=== PATIENT | female | born 1950 | race Caucasian/White ===

== ENCOUNTER → 2023-11-15 13:10 | Outpatient (REF) | payer MEDICARE, OTHER, SELFPAY | LOC: HWWDC 13:10 | PROVIDERS: ATTENDING PHYSICIAN Internal Medicine | DX: Z12.31 Encounter for screening mammogram for malignant neoplasm of breast (principal) | CPT/HCPCS: 77063; 77067 ==

== ENCOUNTER 2024-10-05 06:25 | Emergency (ER) | payer MEDICARE, OTHER, SELFPAY ==
[2024-10-05 09:46] VITALS: BMI 31.1
[2024-10-05] MEDS: DUONEB 3 ML INH (09:56)
--- NOTE | 2024-10-05 10:05 | ED.GENMED ---
History of Present Illness
General
Chief Complaint: Allergic Reaction
Source: patient
Exam Limitations: none
Time Seen by Provider: 10/05/24 09:15
Nursing documentation reviewed up to this point in time: agreed with
History of Present Illness
History of Present Illness:
74 y/o F with GERD, heart murmur
here with itchy rash
pt says about 8 days ago she started with cough. she went to 5 days ago and tested positive for RSV; she mostly had cough, no fever
was sent home with medrol dose peter which she stated 4 days ago
she also started mucinex DM that day
she broke out in a rash the followin gday
cheeks were a little red and dry
than has had varying rash on her arms and legs an dback that seems to wax and wane; is dry and itchy
no fever
thinks that her cough is better
doesn't use an inhaler and is not COPD/smoker or ashtma
but she does feel like she is wheezing
no other new meds or foods
Past History
Past History
ED Past Medical History: GERD
ED Past Surgical History: None
Social History
Tobacco: Non-smoker
Review of Systems
Review of Systems
Allergies reviewed?: Yes
All Other Systems: Not applicable
Phy Exam
Physical Exam
Physical Exam:
GENERAL: Alert , in no apparent distres
ENT: o/p clr, mmm.
CARDIAC: Regular rate and rhythm .
LUNGS: Inspiratory and expiratory wheezes mildly, occasional cough, moving good air, no respiratory distress
ABDOMEN: Soft, without focal tenderness, no r/g, no cvat, normal bowel sounds
NEUROLOGICAL: Alert and oriented, no focal neuro deficits
SKIN: Warm and dry, skin intact.
Urticarial-like rash on the AC regions of both arms, scattered over her back, few on her legs bilaterally, some dry patches on her cheeks but no urticaria, no lip swelling
MUSCULOSKELETAL: No edema, well perfused. neg darrick's sign
PSYCH: Normal and appropriate interaction.
Course
Orders/Labs/Results
Orders:
Orders
10/05/24 09:45
Ipratropium/Albuterol Sulfate [Duoneb] 3 ml .ROUTE .STK-MED ONE
10/05/24 09:55
Ipratropium/Albuterol Sulfate [Duoneb] 3 ml INH R NOW ONE
10/05/24 10:41
Diphenhydramine [Benadryl] 50 mg PO NOW STA
Vital Signs
Initial and Last Documented VS:
Initial Vital Signs
Temp Pulse Resp Pulse Ox
36.5 C 95 18 98
10/05/24 06:33 10/05/24 06:33 10/05/24 06:33 10/05/24 06:33
Last Documented Vital Signs
Temp Pulse Resp BP Pulse Ox
36.5 C 91 18 150/90 98
10/05/24 06:33 10/05/24 10:18 10/05/24 06:33 10/05/24 10:18 10/05/24 06:33
MDM/Problems Addressed
Differential Diagnosis Includes:
Allergic reaction, viral urticaria
MDM/Problems Addressed:
74-year-old female with recently diagnosed RSV with an improving cough he has been on a Medrol Dosepak and Mucinex DM for the last 3 days with urticaria on her arms and back that is itchy. Patient says she has never taken steroids before that she
knows of but she has taken Robitussin DM and she believes Mucinex before without any issues. This is her only new medication. She got tested for flu and COVID at urgent care which were negative but she was positive for RSV. Patient declined an
inhaler because she does not like the way they make her feel because she coughs after using it. But she does have wheezing. On exam she has inspiratory and expiratory wheezing however she is moving good air and is not hypoxic. She believes this
cough is much better than what she had last week. She does have an urticarial-like rash on her arms and trunk. I do feel like this is probably a viral urticaria and less likely an allergy to steroids however she is feeling strong about not
continuing the Medrol Dosepak for which she has 3 pills left which is unlikely to cause her any harm. For her wheezing I am giving her a neb treatment and we will send her home with a neb machine
She can take Benadryl every 6 hours as needed for the urticaria
This does not appear to be acute anaphylactic reaction because she has been having the wheezing before the rash began
*Critical Care Note
Total Time (30-74mins, 75-104mins- exclusive of procedures): Not Applicable
ED Attending Note
-
Portions of this chart may have been created with voice recognition software.� Occasional wrong word or��sound alike� substitutions may have occurred due to the inherent limitations of voice recognition software.
Discharge Plan
Departure
Patient Disposition: Home (Routine Discharge)
Date of Disposition: 10/05/24
Time of Disposition: 10:40
Patient with high blood pressure during this ER visit?: Yes
Condition: Fair
Covid-19: Not Applicable
Discharge Problem:
Urticaria, Acute bronchiolitis due to respiratory syncytial virus (RSV)
Instructions: Hives (DC)
Prescriptions:
New
albuterol sulfate 2.5 mg /3 mL (0.083 %) solution for nebulization
2.5 mg inhalation QID PRN (Reason: shortness of breath or wheezing) Qty: 75 0RF
No Action
No Current Medications
Activity Restrictions/Additional Instructions:
Your hives are probably related to a viral illness rather than allergic reaction to steroids but you can stop the steroids if you like. Take Benadryl 25 or 50 mg every 6-8 hours for a day or 2 and then only as needed for itchy rash. You can use
the nebulizer every 4-6 hours as needed for your wheezy cough. Drink fluids and stay hydrated. Watch for any worsening symptoms like worsening shortness of breath, throat swelling, facial swelling, inability to swallow, worse or severe or painful
rash and return as needed. Otherwise follow-up with your doctor
Interventions
Interventions:
*Risk Screen - Suicide Last Done: 10/05/24 06:33
*General Assessment Last Done: 10/05/24 06:33
*Neglect/Abuse Screening Last Done: 10/05/24 06:33
ED- Fall Risk Assessment Last Done: 10/05/24 09:46
*ED COVID-19 Vaccine History Last Done: 10/05/24 09:46
*Nursing Disposition Last Done: 10/05/24 11:00
ED- Cardiac Assessment Last Done: 10/05/24 09:46
ED- Pulmonary Assessment Last Done: 10/05/24 09:46
ED-Skin Assessment Last Done: 10/05/24 09:46
Discharge Date and Time
Discharge Date/Time: 10/05/24 11:01
Print Language: MONGOLIAN
[2024-10-05 10:18] VITALS: BP 150/90
[2024-10-05] MEDS: BENADRYL 50 MG PO (10:54)
== END 2024-10-05 11:01 | disposition home or self-care (01) ==
LOC: EMR 06:25
PROVIDERS: EMERGENCY PHYSICIAN Emergency Medicine
DX: L50.9 Urticaria, unspecified (principal); J21.0 Acute bronchiolitis due to respiratory syncytial virus; K21.9 Gastro-esophageal reflux disease without esophagitis; R01.1 Cardiac murmur, unspecified
CPT/HCPCS: 99282; 94640

== ENCOUNTER → 2025-01-31 13:47 | Outpatient (REF) | payer MEDICARE, OTHER, SELFPAY ==
[2025-01-31 17:07] LABS: Free T4 0.97 ng/dl (0.78-2.19)
[2025-01-31 17:21] LABS: TSH 1.83 uIU/ml (0.47-4.68)
== END ==
LOC: HWLAB 13:47
PROVIDERS: ATTENDING PHYSICIAN Nurse Practitioner Family
DX: Z76.89 Persons encountering health services in other specified circumstances (principal); E89.0 Postprocedural hypothyroidism
CPT/HCPCS: 36415; 84439; 84443